=== PATIENT | male | born 1940 | race Caucasian/White ===

== ENCOUNTER 2016-06-30 16:07 | Inpatient (IN) ==
[2016-06-30] MEDS ORDERED: *HR* OxyCODONE Immed Rel 5 MG TABLET PO PRN (17:19)
[2016-06-30] MEDS ORDERED: Nitroglycerin 0.4 MG TAB.SUBL SL SCH (17:19)
[2016-06-30] MEDS: Gabapentin 300 MG CAPSULE PO SCH (20:34)
[2016-06-30] MEDS: Carbidopa/Levodopa 25/100 TABLET PO SCH (20:35)
[2016-06-30] MEDS: Furosemide 20 MG TABLET PO SCH (20:39)
[2016-06-30] MEDS: *HR* OxyCODONE Immed Rel 5 MG TABLET PO PRN (23:57)
[2016-07-01] MEDS: Gabapentin 300 MG CAPSULE PO SCH (08:48)
[2016-07-01] MEDS: Aspirin Enteric Coated 325 MG Tablet PO SCH (08:49)
[2016-07-01] MEDS: Carbidopa/Levodopa 25/100 TABLET PO SCH ×2 (08:49→22:21)
[2016-07-01] MEDS: FLUoxetine 20 MG CAPSULE PO SCH (08:49)
[2016-07-01] MEDS: *HR* OxyCODONE Immed Rel 5 MG TABLET PO PRN ×2 (08:50→22:22)
[2016-07-01] MEDS: Cholecalciferol (D-3) 1,000 UNIT TABLET PO SCH (08:50)
--- NOTE | 2016-07-01 15:06 | Internal Med History&Physical ---
Date of Encounter: 07/01/16 Time of Encounter: 14:35 Assessment and Plan (1) Arthritis of right hip Current visit: No Status: Acute Status post right THR 06/23/2016. Continue rehabilitation therapy. (2) Edema Current visit: Yes Status: Acute He reports acute worsening in the past few days with mild to moderate chronic edema. I suspect it is due in part to use of amlodipine and possible gabapentin. These will be decreased. Qualifiers: Edema type: unspecified Qualified Code(s): R60.9 - Edema, unspecified (3) Parkinsons disease Current visit: No Status: Chronic He denies this diagnosis and reports he was evaluated by a neurologist who did not feel this was present. He is uncertain why he was started on Sinemet. I will decrease and ultimately discontinue it. (4) Chronic kidney disease Current visit: No Status: Chronic Suspect underlying stage 2-3 CKD. Adjust medications and monitor renal indices. Qualifiers: Chronic kidney disease stage: stage 3 (moderate) Qualified Code(s): N18.3 - Chronic kidney disease, stage 3 (moderate) (5) Anemia Current visit: No Status: Chronic We will order anemia testing in a.m. Qualifiers: Anemia type: unspecified type Qualified Code(s): D64.9 - Anemia, unspecified Internal Medicine - H&P: HPI Chief complaint: Right hip replacement Admitted From: Hospital to Hospital Transfer Plans for Post Hospital Care: Home History of present illness: Mr. Mariscal is a 76 year old male who was hospitalized at [facility] June 23 for elective right total hip replacement. He required additional blood transfusions postoperatively for anemia. He left [facility] and went home but within one hour he received word he had been accepted to [facility] swing bed. He was admitted to swing bed for ongoing therapy prior to discharge back home His orthopedic history is significant for low back surgery 2013, left rotator cuff repair 2012, right carpal tunnel surgery, right elbow surgery, and bilateral knee replacements. He does not have known gallop. Past Med Surg Social Fam HX - Past Medical History Medical history: arthritis, cancer, coronary artery disease, hyperlipidemia, hypertension, myocardial infarction Psychiatric history: anxiety, depression - Past Surgical History Surgical History: angioplasty/stent, coronary bypass (CABG), orthopedic, other - Social History Smoking Status: Never smoker Smokeless Tobacco Status: No Alcohol use: none Drug use: none - Family History Father Family Member Ethnicity: Non- Living Status: Hx Family Cardiac Disorders: Yes Internal Medicine - H&P: Meds Aspirin [Adult Low Dose Aspirin EC] 81 mg PO HS 06/07/15 [History] FLUoxetine HCl [Prozac] 20 mg PO DAILY 06/07/15 [History] Furosemide [Lasix] 20 mg PO HS 06/07/15 [History] Losartan Potassium [Cozaar] 100 mg PO HS 06/07/15 [History] Nitroglycerin [Nitrostat] 0.4 mg SL AD PRN 06/07/15 [History] Metoprolol [Lopressor] 50 mg PO BID 30 Days 06/16/15 [Rx] Carbidopa/Levodopa 25/100 [Sinemet 25/100] 0.5 each PO TID tablet 10/18/15 [Rx] Oxybutynin [Ditropan] 5 mg PO TID #90 tablet 02/21/16 [Rx] Atorvastatin [Lipitor] 40 mg PO HS 05/22/16 [History] Aspirin Enteric Coated [Aspirin EC] 325 mg PO DAILY #21 tablet. 06/22/16 [Rx] OxyCODONE Immed Rel [Roxicodone 5 MG] 5 - 10 mg PO Q6HR PRN #40 tablet 06/22/16 [Rx] Amlodipine Besylate 10 mg PO HS 06/23/16 [History] Cholecalciferol (D-3) [Vitamin D] 5,000 unit PO DAILY 06/23/16 [History] Clopidogrel [Plavix] 75 mg PO HS 06/23/16 [History] Gabapentin 300 mg PO TID 06/23/16 [History] Potassium Chloride [Klor-Con 10] 30 meq PO DAILY 06/23/16 [History] Allergies methocarbamol [From Robaxin] Allergy (Verified 06/23/16 13:11) Difficulty Breathing methylprednisolone [From Medrol] Allergy (Verified 06/23/16 13:11) Difficulty Breathing All Systems PM: A 10-system review of systems was performed and is negative for pertinent findings except as documented above in the HPI. Review of systems: Gen.: He states his weight has been stable the past few months Cardiovascular: He has history of hypertension. He has known ASHD status post 3 stents 2006 and additional KEVIN in an SVG June 2015. Denies heart failure DVT or pulmonary embolus. Respiratory: He quit smoking at age 28 and has no known chronic lung disease. GI: Denies disorders of his liver gallbladder or exocrine pancreas : He had prostate cancer in June 2015 followed by XRT. He reports urinary frequency and incontinence. He denies other kidney or bladder disorders Neurologic: He denies large distribution strokes or seizures or Parkinson's disease. He is uncertain why he is on Sinemet or gabapentin Endocrine: He denies diabetes or thyroid disease but does have hyperlipidemia Hematology/oncology: He has prostate CA as mentioned above but denies blood disorders cancers or anemia Psychiatric: He has anxiety and depression but denies other mental health issues Musk skeletal: As per history of present illness - Constitutional Vitals: Temp Pulse Resp BP Pulse Ox 97.8 F 75 16 118/67 94 L 07/01/16 10:38 07/01/16 10:38 07/01/16 10:38 07/01/16 10:38 07/01/16 10:38 Exam: Gen.: He is a well-developed well-nourished male who appears in no acute distress at present time. HEENT: Head is atraumatic and normocephalic. Eyes: EOMI. There is no scleral icterus. Mouth: Mucosa is moist. Neck: Supple and nontender. There is no thyromegaly or adenopathy noted. Heart: Regular without murmurs gallops or ectopics. Lungs: No wheezes or crackles are heard. Abdomen: Soft and nontender. Exam is limited because he is in seated position. Extremities: He has 2-3+ edema of the dorsum of the feet and lower anterior shins bilaterally. Dorsalis pedis and posttibial pulses are nonpalpable because of the edema. Neurologic: Mental status: He is talkative and a good historian. Cranial nerves : Smile is symmetric. Forehead wrinkles bilaterally. Tongue protrudes midline. EOMI. Motor: There is no pronator drift. Cerebellar: Finger to nose is intact bilaterally. Skin: Warm and dry
[2016-07-01] MEDS: Furosemide 20 MG TABLET PO SCH (22:22)
[2016-07-01] MEDS: Gabapentin 100 MG CAPSULE PO SCH (22:22)
[2016-07-02] MEDS: *HR* OxyCODONE Immed Rel 5 MG TABLET PO PRN ×3 (05:28→22:34)
[2016-07-02 06:08] LABS: Basophils % 0.5 %; Eosinophils # 0.2 K/mcL (0.0-0.6); Eosinophils % 2.5 %; Hematocrit 30.1 % (37.5-50.1); Hemoglobin 10.1 g/dL (12.9-16.9); Immature Granulocytes % 0.6 % (0-4); Lymphocytes # 1.2 K/mcL (0.6-4.6); Lymphocytes % 18.1 %; Mean Corpuscular HGB Conc 33.6 g/dL (31.6-35.5); Mean Corpuscular Hemoglobin 33.9 pg (28.0-33.3); Mean Platelet Volume 10.2 fL (9.4-12.4); Monocytes # 0.5 K/mcL (0.0-1.3); Monocytes % 8.3 %; Neutrophils # 4.4 K/mcL (1.6-8.9); Platelet Count 230 K/mcL (140-400); Red Blood Count 2.98 M/mcL (4.19-5.50); Red Cell Distribution Width 15.1 % (11.5-14.5)
[2016-07-02] MEDS: Aspirin Enteric Coated 325 MG Tablet PO SCH (08:27)
[2016-07-02] MEDS: Carbidopa/Levodopa 25/100 TABLET PO SCH ×2 (08:28→21:02)
[2016-07-02] MEDS: Cholecalciferol (D-3) 1,000 UNIT TABLET PO SCH (08:28)
[2016-07-02] MEDS: FLUoxetine 20 MG CAPSULE PO SCH (08:28)
[2016-07-02] MEDS: Gabapentin 100 MG CAPSULE PO SCH ×3 (08:29→21:02)
[2016-07-02 10:04] LABS: % Iron Saturation 19 % (20-55); Iron 51 mcg/dL (65-175); Transferrin 189 mg/dL (174-364)
[2016-07-02 10:42] LABS: Ferritin 739 ng/ml (22-275)
[2016-07-02 10:55] LABS: Folate 11.1 ng/mL (7.0-31.4)
--- NOTE | 2016-07-02 17:43 | Internal Med Progress Note ---
Date of Encounter: 07/02/16 Time of Encounter: 17:30 - Assessment and plan (1) Arthritis of right hip Current Visit: No Status: Acute Assessment and plan: July 02. Status post right THR 06/23/2016. Continue rehabilitation therapy. (2) Edema Current Visit: Yes Status: Acute Assessment and plan: July 02. Continue HCTZ. We will change Lasix to Bumex every morning.. Qualifiers: Edema type: unspecified Qualified Code(s): R60.9 - Edema, unspecified (3) Parkinsons disease Current Visit: No Status: Chronic Assessment and plan: July 02. He denies this diagnosis. Continue to taper down Sinemet (4) Chronic kidney disease Current Visit: No Status: Chronic Assessment and plan: July 02. Continue to monitor renal indices periodically. Qualifiers: Chronic kidney disease stage: stage 3 (moderate) Qualified Code(s): N18.3 - Chronic kidney disease, stage 3 (moderate) (5) Anemia Current Visit: No Status: Chronic Assessment and plan: July 02. Anemia testing showed borderline low B12. Hemoglobin had improved to 10.1. Will start oral B12 supplement. Qualifiers: Anemia type: unspecified type Qualified Code(s): D64.9 - Anemia, unspecified - Subjective Interval history: July 02. He has no new complaints. He went to a follow-up visit at the orthopedist office today. He reports venous ultrasound was done since he had noticeable right leg edema. He reports study was negative. - Constitutional Vitals: Temp Pulse Resp BP Pulse Ox 98.3 F 64 15 149/81 94 L 07/02/16 07:01 07/02/16 09:44 07/02/16 09:44 07/02/16 09:44 07/02/16 09:44 Exam: He is sitting on the side of bed in no acute distress. His edema has lessened slightly today in both lower legs. His affect is bright and cheerful. I reviewed his medications and lab results. Internal Medicine: Result - Labs CBC & Chem 7: 07/02/16 05:09 Labs: Short CBC 07/02/16 Range/Units 05:09 WBC 6.4 (4.3-11.1) K/mcL Hgb 10.1 L (12.9-16.9) g/dL Hct 30.1 L (37.5-50.1) % Plt Count 230 (140-400) K/mcL Neutrophils # 4.4 (1.6-8.9) K/mcL Consult Discharge Plan - Plan Referrals: Marilou Louise CNP [Primary Care Provider] - 1 week
[2016-07-03] MEDS: Gabapentin 100 MG CAPSULE PO SCH ×3 (09:39→21:51)
[2016-07-03] MEDS: Carbidopa/Levodopa 25/100 TABLET PO SCH ×2 (09:39→21:50)
[2016-07-03] MEDS: FLUoxetine 20 MG CAPSULE PO SCH (09:40)
[2016-07-03] MEDS: Bumetanide 1 MG TABLET PO SCH (09:41)
[2016-07-03] MEDS: Cyanocobalamin (B-12) 1,000 MCG TABLET PO SCH (09:41)
[2016-07-03] MEDS: Aspirin Enteric Coated 325 MG Tablet PO SCH (09:41)
[2016-07-03] MEDS: Cholecalciferol (D-3) 1,000 UNIT TABLET PO SCH (09:42)
[2016-07-03] MEDS: *HR* OxyCODONE Immed Rel 5 MG TABLET PO PRN ×3 (09:45→21:55)
[2016-07-04] MEDS: Aspirin Enteric Coated 325 MG Tablet PO SCH (07:57)
[2016-07-04] MEDS: Gabapentin 100 MG CAPSULE PO SCH ×3 (07:58→21:26)
[2016-07-04] MEDS: Bumetanide 1 MG TABLET PO SCH (07:58)
[2016-07-04] MEDS: FLUoxetine 20 MG CAPSULE PO SCH (07:59)
[2016-07-04] MEDS: Carbidopa/Levodopa 25/100 TABLET PO SCH ×2 (07:59→21:27)
[2016-07-04] MEDS: Cyanocobalamin (B-12) 1,000 MCG TABLET PO SCH (07:59)
[2016-07-04] MEDS: Cholecalciferol (D-3) 1,000 UNIT TABLET PO SCH (07:59)
[2016-07-04] MEDS: *HR* OxyCODONE Immed Rel 5 MG TABLET PO PRN ×3 (08:05→21:27)
[2016-07-05] MEDS: *HR* OxyCODONE Immed Rel 5 MG TABLET PO PRN ×3 (02:41→22:47)
[2016-07-05] MEDS: Bumetanide 1 MG TABLET PO SCH (10:42)
[2016-07-05] MEDS: Aspirin Enteric Coated 325 MG Tablet PO SCH (10:43)
[2016-07-05] MEDS: Carbidopa/Levodopa 25/100 TABLET PO SCH ×2 (10:43→22:48)
[2016-07-05] MEDS: FLUoxetine 20 MG CAPSULE PO SCH (10:45)
[2016-07-05] MEDS: Cholecalciferol (D-3) 1,000 UNIT TABLET PO SCH (10:45)
[2016-07-05] MEDS: Cyanocobalamin (B-12) 1,000 MCG TABLET PO SCH (10:45)
[2016-07-05] MEDS: Gabapentin 100 MG CAPSULE PO SCH ×3 (10:46→22:47)
[2016-07-06] MEDS: Cholecalciferol (D-3) 1,000 UNIT TABLET PO SCH (10:00)
[2016-07-06] MEDS: Gabapentin 100 MG CAPSULE PO SCH ×3 (10:00→21:35)
[2016-07-06] MEDS: Bumetanide 1 MG TABLET PO SCH (10:00)
[2016-07-06] MEDS: FLUoxetine 20 MG CAPSULE PO SCH (10:00)
[2016-07-06] MEDS: Cyanocobalamin (B-12) 1,000 MCG TABLET PO SCH (10:00)
[2016-07-06] MEDS: Carbidopa/Levodopa 25/100 TABLET PO SCH ×2 (10:00→21:34)
[2016-07-06] MEDS: Aspirin Enteric Coated 325 MG Tablet PO SCH (10:05)
--- NOTE | 2016-07-06 11:32 | Internal Med Progress Note ---
Date of Encounter: 07/06/16 Time of Encounter: 11:20 - Assessment and plan (1) Arthritis of right hip Current Visit: No Status: Acute Assessment and plan: July 02. Status post right THR 06/23/2016. Continue rehabilitation therapy. (2) Edema Current Visit: Yes Status: Acute Assessment and plan: July 02. Continue HCTZ. We will change Lasix to Bumex every morning.. July 06. Continue HCTZ and Bumex and will check labs in a.m. Qualifiers: Edema type: unspecified Qualified Code(s): R60.9 - Edema, unspecified (3) Parkinsons disease Current Visit: No Status: Chronic Assessment and plan: July 02. He denies this diagnosis. Continue to taper down Sinemet July 06. Anticipate discharge home without Sinemet tomorrow (4) Chronic kidney disease Current Visit: No Status: Chronic Assessment and plan: July 02. Continue to monitor renal indices periodically. July 06. We will check labs in a.m. Qualifiers: Chronic kidney disease stage: stage 3 (moderate) Qualified Code(s): N18.3 - Chronic kidney disease, stage 3 (moderate) (5) Anemia Current Visit: No Status: Chronic Assessment and plan: July 02. Anemia testing showed borderline low B12. Hemoglobin had improved to 10.1. Will start oral B12 supplement. July 06. Continue oral B12 supplement Qualifiers: Anemia type: unspecified type Qualified Code(s): D64.9 - Anemia, unspecified - Subjective Interval history: July 02. He has no new complaints. He went to a follow-up visit at the orthopedist office today. He reports venous ultrasound was done since he had noticeable right leg edema. He reports study was negative. July 06. He has no new complaints. He feels his right leg is slightly more swollen today - Constitutional Vitals: Temp Pulse Resp BP Pulse Ox 98.5 F 67 16 144/67 94 L 07/06/16 06:55 07/06/16 06:55 07/06/16 06:55 07/06/16 06:55 07/06/16 06:55 Exam: He is sitting comfortably in the chair. His feet are on the floor. His right leg shows 2+ pitting edema. His left leg shows trace to 1+ pitting edema. His affect is bright and cheerful. I reviewed his medications and lab results. Internal Medicine: Result - Labs CBC & Chem 7: 07/02/16 05:09 Consult Discharge Plan - Plan Referrals: Marilou Louise CNP [Primary Care Provider] - 1 week
[2016-07-06] MEDS: *HR* OxyCODONE Immed Rel 5 MG TABLET PO PRN (21:33)
[2016-07-07 06:09] LABS: Basophils % 0.4 %; Eosinophils # 0.2 K/mcL (0.0-0.6); Eosinophils % 2.1 %; Hematocrit 31.3 % (37.5-50.1); Hemoglobin 10.8 g/dL (12.9-16.9); Immature Granulocytes % 0.7 % (0-4); Lymphocytes % 13.3 %; Mean Corpuscular HGB Conc 34.5 g/dL (31.6-35.5); Mean Corpuscular Hemoglobin 33.5 pg (28.0-33.3); Mean Corpuscular Volume 97.2 fL (83.0-100.0); Mean Platelet Volume 9.1 fL (9.4-12.4); Monocytes # 0.5 K/mcL (0.0-1.3); Monocytes % 6.9 %; Neutrophils # 5.8 K/mcL (1.6-8.9); Platelet Count 302 K/mcL (140-400); Red Blood Count 3.22 M/mcL (4.19-5.50); Red Cell Distribution Width 14.6 % (11.5-14.5); Segmented Neutrophils % 76.6 %
[2016-07-07 06:28] LABS: BUN/Creatinine Ratio 22 (6-26); Blood Urea Nitrogen 25 mg/dL (8-26); Calcium 9.2 mg/dL (8.6-10.8); Carbon Dioxide 28 mEq/L (19-29); Chloride 99 mEq/L (98-109); Glucose 138 mg/dL (70-99); Magnesium 2.1 mg/dL (1.6-2.6); Osmolality,Calculated 299 (280-300); Potassium 3.2 mEq/L (3.5-4.5); Sodium 141 mEq/L (136-145); eGFR For African Americans > 60 (> 60); eGFR For Non-African Americans > 60 (> 60)
[2016-07-07 07:03] VITALS: BP 176/82
[2016-07-07] MEDS: Carbidopa/Levodopa 25/100 TABLET PO SCH (07:51)
[2016-07-07] MEDS: Cholecalciferol (D-3) 1,000 UNIT TABLET PO SCH (07:52)
[2016-07-07] MEDS: Gabapentin 100 MG CAPSULE PO SCH (07:52)
[2016-07-07] MEDS: FLUoxetine 20 MG CAPSULE PO SCH (07:53)
[2016-07-07] MEDS: Cyanocobalamin (B-12) 1,000 MCG TABLET PO SCH (07:53)
[2016-07-07] MEDS: Bumetanide 1 MG TABLET PO SCH (07:53)
[2016-07-07] MEDS: Aspirin Enteric Coated 325 MG Tablet PO SCH (08:01)
--- NOTE | 2016-07-07 11:08 | Discharge Summary ---
Date of Encounter: 07/07/16 Time of Encounter: 10:50 - Discharge Diagnosis (1) Arthritis of right hip Priority: Primary Status: Acute (2) Edema Priority: Secondary Status: Acute Qualifiers: Edema type: unspecified Qualified Code(s): R60.9 - Edema, unspecified (3) Parkinsons disease Priority: Secondary Status: Chronic (4) Chronic kidney disease Priority: Secondary Status: Chronic Qualifiers: Chronic kidney disease stage: stage 3 (moderate) Qualified Code(s): N18.3 - Chronic kidney disease, stage 3 (moderate) (5) Anemia Priority: Secondary Status: Chronic Qualifiers: Anemia type: unspecified type Qualified Code(s): D64.9 - Anemia, unspecified - Discharge Medications Prescriptions: Bumetanide [Bumex] 1 mg PO DAILY #15 tablet Cyanocobalamin (B-12) [Vitamin B12] 1,000 mcg PO DAILY #15 tablet Hydrochlorothiazide 12.5 mg PO DAILY #15 tablet Potassium Chloride 20 meq PO BID #60 tab.er.prt Home Medications: FLUoxetine HCl [Prozac] 20 mg PO DAILY 06/07/15 [History] Losartan Potassium [Cozaar] 100 mg PO HS 06/07/15 [History] Nitroglycerin [Nitrostat] 0.4 mg SL AD PRN 06/07/15 [History] Metoprolol [Lopressor] 50 mg PO BID 30 Days 06/16/15 [Rx] Oxybutynin [Ditropan] 5 mg PO TID #90 tablet 02/21/16 [Rx] Atorvastatin [Lipitor] 40 mg PO HS 05/22/16 [History] Aspirin Enteric Coated [Aspirin EC] 325 mg PO DAILY #21 tablet. 06/22/16 [Rx] OxyCODONE Immed Rel [Roxicodone 5 MG] 5 - 10 mg PO Q6HR PRN #40 tablet 06/22/16 [Rx] Cholecalciferol (D-3) [Vitamin D] 5,000 unit PO DAILY 06/23/16 [History] Clopidogrel [Plavix] 75 mg PO HS 06/23/16 [History] Bumetanide [Bumex] 1 mg PO DAILY #15 tablet 07/07/16 [Rx] Cyanocobalamin (B-12) [Vitamin B12] 1,000 mcg PO DAILY #15 tablet 07/07/16 [Rx] Hydrochlorothiazide 12.5 mg PO DAILY #15 tablet 07/07/16 [Rx] Potassium Chloride 20 meq PO BID #60 tab.er.prt 07/07/16 [Rx] Allergies/Adverse Reactions: Allergies methocarbamol [From Robaxin] Allergy (Verified 06/23/16 13:11) Difficulty Breathing methylprednisolone [From Medrol] Allergy (Verified 06/23/16 13:11) Difficulty Breathing Date of admission: 06/30/16 16:16 Primary care physician: Marilou Louise CNP Consults: 07/01/16 07:15 Consult to Occupational Therapy [CONS] Routine Comment: Evaluate, develop and implement POC Consult to Physical Therapy [CONS] Routine Comment: Evaluate, develop and implement POC - Patient Status Disposition: Home, Self-Care Overall status at discharge: patient is progressing back to baseline - Discharge Instructions Follow Up With: Marilou Louise CNP [Primary Care Provider] - 1 week - Diet and Activity Activity: resume usual activities as tolerated Diet: advance to your usual diet Hospital course: Mr. Mariscal is a 76 year old male who was hospitalized at [facility] June 23 for elective right total hip replacement. He required additional blood transfusions postoperatively for anemia. He left [facility] and went home but within one hour he received word he had been accepted to [facility] swing bed. He was admitted to swing bed for ongoing therapy prior to discharge back home. Initial orders were written by the discharge physicians at [facility]. I saw him on July 01 and performed a swing bed history and physical. He had physical therapy and occupational therapy evaluations and ongoing interventions. He progressed satisfactorily and felt stable for discharge home on July 07. He will have a shower chair and bedside commode for [facility]. He will continue with outpatient physical therapy and occupational therapy. I discontinued his amlodipine and decreased his gabapentin dose because of the edema. He was changed from Lasix to Bumex and CISCO hose were used. He was started on hydrochlorothiazide for blood pressure control. His weight decreased from 118.66 kg on July 02 to 112.128 kg at discharge. He will continue on HCTZ, lower dose Bumex, and increased dose potassium at discharge. His primary care provider can order follow-up labs at the follow-up visit within 1 week to evaluate his electrolytes and renal function etc. Anemia testing showed iron 51, transferrin saturation 12%, ferritin 739, and folate 11.1. B12 was slightly low at 212 so he was given oral B12 supplementation and this will be continued at discharge. Follow-up CBC on the day of discharge showed hemoglobin improved to 10.8. His potassium level was low at 3.2 on day of discharge but I feel that a decreased dose of Bumex and higher dose potassium will improve this. I will let his PCP recheck these labs at the next office visit. On July 07 arrangements were complete for him to be discharged home. He will follow with his primary care provider Marilou Louise CNP within 1 week. - Time Spent with Patient Total time spent providing and/or coordinating discharge services: - Constitutional Vitals: Temp Pulse Resp BP Pulse Ox 97.5 F L 65 16 176/82 96 07/07/16 07:00 07/07/16 07:00 07/07/16 07:00 07/07/16 07:00 07/07/16 07:00 - VTE Documentation of Mechanical Device: Graduated compression elastic hosiery
== END 2016-07-07 13:00 | disposition home or self-care (01) | DRG 561 ==
LOC: INPPIK 16:16
PROVIDERS: ADMIT Internal Medicine; ATTEND Internal Medicine